=== PATIENT | male | born 1965 | race Caucasian/White ===

== ENCOUNTER 2021-11-21 09:09 | Emergency (ER) | payer MEDICAID ==
[~2021-11-21] VITALS: Ht 170.2 cm; Wt 77.0 kg
[~2021-11-21 09:09] MED LIST: NO MEDS
[2021-11-21] MEDS ORDERED: CEPHALEXIN 250MG CAPSULE PO ONE (10:00)
[2021-11-21] MEDS ORDERED: CEPH500C2 MT (11:23)
[2021-11-21 11:58] VITALS: BP 141/63
== END 2021-11-21 11:59 | disposition home or self-care (01) ==
LOC: ER 09:19
DX: L97.528 Non-pressure chronic ulcer of other part of left foot with other specified severity (principal); L97.518 Non-pressure chronic ulcer of other part of right foot with other specified severity; L03.116 Cellulitis of left lower limb; L03.115 Cellulitis of right lower limb; I10 Essential (primary) hypertension; I49.9 Cardiac arrhythmia, unspecified
CPT/HCPCS: 99283